=== PATIENT | male | born 1955 | race Caucasian/White ===

== ENCOUNTER 2019-02-24 10:09 | Emergency (ER) | payer MEDICARE ==
--- NOTE | 2019-02-24 10:57 | ER Document Report ---
ED General - General Chief Complaint: Chest Pain Stated Complaint: CHEST PAIN Time Seen by Provider: 02/24/19 10:36 Primary Care Provider: ALEXSANDER CONNELLY MD [Primary Care Provider] - Follow up as needed TRAVEL OUTSIDE OF THE [place] IN LAST 30 DAYS: No - HPI Patient complains to provider of: Dizziness shortness of breath Notes: 63-year-old male with history of pulmonary embolus presents with dizziness shortness of breath intermittent chest pain. Patient is pain-free today. Symptoms started last night. Patient states it feels indicative his previous pulmonary embolus. Patient denies any syncope or increasing pain with deep inspiration. Of note gary greer has had better control of his blood pressure over the last year and a half. But he still on the same 3 medications. Patient presents the emergency department positive orthostatic vital signs, systolic blood pressure in 102. Patient is describing the symptoms of sitting up similar symptoms he is correlating with pulmonary embolus. Patient denies hemoptysis, fever, chills, hypoxia. - Related Data Allergies/Adverse Reactions: No Known Allergies Allergy (Unverified 02/24/19 11:02) Past Medical History - Social History Smoking Status: Unknown if Ever Smoked Family History: None Review of Systems - Review of Systems Notes: REVIEW OF SYSTEMS: CONSTITUTIONAL: -fevers, -chills EENT: -eye pain, -difficulty swallowing, -nasal congestion CARDIOVASCULAR: -chest pain, -syncope. RESPIRATORY: -cough, positive SOB GASTROINTESTINAL: -abdominal pain, -nausea, -vomiting, -diarrhea GENITOURINARY: -dysuria, -hematuria MUSCULOSKELETAL: -back pain, -neck pain SKIN: -rash or skin lesions. HEMATOLOGIC: -easy bruising or bleeding. LYMPHATIC: -swollen, enlarged glands. NEUROLOGICAL: -altered mental status or loss of consciousness, -headache, - neurologic symptoms PSYCHIATRIC: -anxiety, -depression. ALL OTHER SYSTEMS REVIEWED AND NEGATIVE. Physical Exam - Vital signs Vitals: Temp Pulse Resp BP Pulse Ox 97.8 F 100 19 91/52 L 100 02/24/19 10:17 02/24/19 10:17 02/24/19 10:17 02/24/19 10:17 02/24/19 10:17 Course - Re-evaluation Re-evalutation: 02/24/19 11:22 63-year-old male presents with symptoms of shortness of breath and dizziness when standing possible chest pain that timeframe to quantify. Will order extensive lab work-up give fluid bolus EKG chest x-ray d-dimer 02/24/19 13:51 Patient's kidney function borderline. Discussed case with radiology. They recommend a VQ scan. Patient's extensive lab work-up shows no leukocytosis, no anemia. Patient's EKG is no ischemic changes, troponin negative. Patient's VQ scan no pulmonary embolus. Patient is currently on 3 blood pressure medications amlodipine, lisinopril, hydrochlorothiazide. Patient has not had a medication adjustment in over a year. Patient had previously been diabetic but has gotten much healthier he states he lost weight and begin exercising. His doctor did take him off his glipizide as his A1c was 4.7. He is not made any adjustments to his blood pressure medications. Have a high suspicion patient symptoms secondary to much blood pressure medication. Patient observed in the department for approximately 4 hours. Given fluid resuscitation. Patient has no symptoms at this time he says he feels great and has not felt this well in some time. Patient found to have low potassium will replete potassium in the emergency department and give prescription for more oral potassium. Given strict return precautions anything changes please return and see your PCP tomorrow. - Vital Signs Vital signs: Temp Pulse Resp BP Pulse Ox 97.8 F 100 19 95/55 L 97 02/24/19 10:17 02/24/19 10:17 02/24/19 12:01 02/24/19 12:01 02/24/19 12:01 - Laboratory Result Diagrams: 02/24/19 10:47 02/24/19 10:47 Laboratory results interpreted by me: 02/24/19 02/24/19 02/24/19 10:47 10:47 10:47 RBC 2.46 L Hgb 10.4 L Hct 28.1 L MCV 114 H MCH 42.1 H MCHC 36.9 H RDW 15.2 H Plt Count 134 L Seg Neutrophils % 78.7 H D-Dimer 0.99 H Potassium 2.9 L* Chloride 93 L Carbon Dioxide 33 H Creatinine 1.74 H Est GFR ( Amer) 48 L Est GFR (Non-Af Amer) 40 L Glucose 210 H Discharge - Discharge Clinical Impression: Hypokalemia, SOB (shortness of breath) Condition: Stable Disposition: HOME, SELF-CARE Instructions: Chest Pain of Unclear Cause ([facility]) Additional Instructions: Hold your BP meds for one day Prescriptions: Potassium Chloride [K-Tab ER] 20 meq PO DAILY #20 tablet.er Referrals: ALEXSANDER CONNELLY MD [Primary Care Provider] - Follow up as needed
[2019-02-24 11:08] LABS: ABSOLUTE EOSINOPHILS # (AUTO) 0.1 10^3/uL (0.0-0.6); ABSOLUTE MONOCYTES (AUTO) 0.5 10^3/uL (0.1-1.4); ABSOLUTE NEUT (AUTO) 6.1 10^3/uL (1.7-8.2); BASOPHILS % (AUTO) 0.4 % (0-2); HEMATOCRIT 28.1 % (37.9-51.0); HEMOGLOBIN 10.4 g/dL (13.5-17.0); LYMPHOCYTES % (AUTO) 13.5 % (13-45); MEAN CORPUSCULAR HEMOGLOBIN 42.1 pg (27.0-33.4); MEAN CORPUSCULAR HGB CONC 36.9 g/dL (32.0-36.0); MONOCYTES % (AUTO) 6.4 % (3-13); PLATELET COUNT 134 10^3/uL (150-450); RED BLOOD COUNT 2.46 10^6/uL (4.35-5.55); RED CELL DISTRIBUTION WIDTH 15.2 % (11.5-14.0); SEGMENTED NEUTROPHILS % (AUTO) 78.7 % (42-78); TOTAL CELLS COUNTED % (AUTO) 100 %; WHITE BLOOD COUNT 7.8 10^3/uL (4.0-10.5)
[2019-02-24 11:12] LABS: MEAN CORPUSCULAR VOLUME 114 fl (80-97)
[2019-02-24] MEDS ORDERED: NORMAL SALINE 1000 ML 1,000 ML IV ONE (11:17)
--- NOTE | 2019-02-24 11:20 | RADIOLOGY REPORT (SQ) ---
EXAM DESCRIPTION: CHEST 2 VIEWS COMPLETED DATE/TIME: 02/24/2019 11:10 am REASON FOR STUDY: sob COMPARISON: None. EXAM PARAMETERS: NUMBER OF VIEWS: two views TECHNIQUE: Digital Frontal and Lateral radiographic views of the chest acquired. RADIATION DOSE: NA LIMITATIONS: none FINDINGS: LUNGS AND PLEURA: No opacities, masses or pneumothorax. No pleural effusion. MEDIASTINUM AND HILAR STRUCTURES: No masses or contour abnormalities. HEART AND VASCULAR STRUCTURES: Heart normal size. No evidence for failure. BONES: Disc degenerative disease of the thoracic spine. HARDWARE: None in the chest. OTHER: No other significant finding. IMPRESSION: No acute abnormality of the lungs. No focal airspace opacity. TECHNICAL DOCUMENTATION: JOB ID: [id number] [employer]- All Rights Reserved Reading location - IP/workstation name: [email or web address]
[2019-02-24 11:26] LABS: ANION GAP 15 (5-19); BLOOD UREA NITROGEN 18 mg/dL (7-20); CALCIUM 9.4 mg/dL (8.4-10.2); CARBON DIOXIDE 33 mmol/L (22-30); CHLORIDE 93 mmol/L (98-107); GLUCOSE 210 mg/dL (75-110); SODIUM 140.8 mmol/L (137-145)
[2019-02-24 11:27] LABS: TOXIC GRANULATION SLIGHT
[2019-02-24 11:28] LABS: ANISOCYTOSIS SLIGHT; PAPPENHEIMER BODIES PRESENT; PLATELET COMMENT DECREASED; POIKILOCYTOSIS SLIGHT; POLYCHROMASIA 1+; STOMATOCYTES SLIGHT; TEAR DROP CELLS SLIGHT
[2019-02-24 11:30] LABS: POTASSIUM 2.9 mmol/L (3.6-5.0)
[2019-02-24 11:38] LABS: NT PRO BNP 373 pg/mL (5-900)
[2019-02-24 11:39] LABS: TROPONIN I < 0.012 ng/mL
[2019-02-24] MEDS ORDERED: POTASSIUM CHLORIDE 20 MEQ PACKET PO ONE (12:08)
--- NOTE | 2019-02-24 13:49 | RADIOLOGY REPORT (SQ) ---
EXAM DESCRIPTION: NM LUNG VENT/PERF SCAN COMPLETED DATE/TIME: 02/24/2019 1:40 pm REASON FOR STUDY: elevated d-dimer COMPARISON: Two-view chest 02/24/2019 RADIONUCLIDE AND DOSE: 5.3 millicuries TC-99m MAA Intravenous 30 millicuries TC-99m DTPA Inhaled aerosol TECHNIQUE: Eight views of the lungs acquired post ventilation of DTPA aerosol. Eight matching views of the lungs acquired following injection of MAA. LIMITATIONS: None. FINDINGS: VENTILATION: Symmetric and homogeneous distribution of DTPA aerosol during ventilatory pha se. No significant areas of photopenia. PERFUSION: Perfusion images with normal homogenous activity and no wedge-shaped or segmental defects. No ventilation-perfusion mismatches. OTHER: Report called to Dr. Hampton IMPRESSION: NORMAL VENTILATION-PERFUSION LUNG SCAN. NEGATIVE FOR PULMONARY EMBOLI. TECHNICAL DOCUMENTATION: JOB ID: [id number] [employer]- All Rights Reserved Reading location - IP/workstation name: [email or web address]
[2019-02-24 13:56] VITALS: BP 137/87
--- NOTE | 2019-02-24 16:12 | EKG REPORT ---
SEVERITY:- ABNORMAL ECG - SINUS RHYTHM PREMATURE ATRIAL CONTRACTIONS. NONSPECIFIC REPOL ABNORMALITY, DIFFUSE LEADS : Confirmed by: Hansel Oscar MD 24-Feb-2019 16:11:42
[2019-02-25 10:58] LABS: PATH REVIEW PATHOLOGIST REVIEWED
== END 2019-02-24 14:02 | disposition home or self-care (01) ==
LOC: ER 10:09
DX: E87.6 Hypokalemia (principal); R06.02 Shortness of breath; R07.9 Chest pain, unspecified; R42 Dizziness and giddiness
CPT/HCPCS: 93005; 99284; 96360; 36415; 85025; 80048; 84484; 85379; 83880; 71046; 78582; 93010; A9540; A9567; J7030; Q9969; J3490